=== PATIENT | female | born 1960 | race Caucasian/White ===

== ENCOUNTER 2016-04-02 23:18 | Emergency (ER) | payer OTHER ==
[~2016-04-02] VITALS: Ht 154.9 cm; Wt 39.5 kg
[~2016-04-02 23:18] MED LIST: ENDOCET 5-3251 EACH PO; HYDROCHLOROTH12.5 M3 PO; LISINOPRIL10 MG PO; NOHOMEMEDS; PERCOCET 5/31 TABLET PO
[2016-04-03] MEDS ORDERED: NORCO 5/3251 TABLET PO (00:08)
[2016-04-03 00:17] VITALS: BP 157/90
== END 2016-04-03 00:21 | disposition home or self-care (01) ==
LOC: EME 23:18
DX: S69.91XA Unspecified injury of right wrist, hand and finger(s), initial encounter (principal); W10.1XXA Fall (on)(from) sidewalk curb, initial encounter; Y92.480 Sidewalk as the place of occurrence of the external cause; F17.200 Nicotine dependence, unspecified, uncomplicated
CPT/HCPCS: 73110; 99281; 99284

== ENCOUNTER 2017-07-29 17:10 | Inpatient (IN) | payer OTHER ==
[~2017-07-29] VITALS: Ht 160 cm; Wt 40.1 kg
[~2017-07-29 17:10] MED LIST changes: +NORCO 5/3251 TABLET PO
[2017-07-29 17:59] LABS: ALBUMIN 3.7 g/dL (3.2-4.8); CHLORIDE 80 mEq/L (99-109); POTASSIUM 4.1 mEq/L (3.7-5.4); SODIUM 121 mEq/L (136-147)
[2017-07-29 18:00] LABS: COMMENTS - BLOOD GASES A+C+; DEVICE NC; O2 FLOW 6 L/MIN; SITE RR; TOTAL RESP RATE 26 resp/min
[2017-07-29 18:01] LABS: GLUCOSE 97 mg/dL (70-99); TOTAL PROTEIN 7.4 g/dL (6.4-8.3)
[2017-07-29 18:01] LABS: BASE EXCESS -0.4 mEq/L (-3 to +3); BICARBONATE 23.1 mEq/L (22-26); CARBOXY HGB 1.5 % (0-5); METHEMOGLOBIN 1.1 % (0-1.5); PCO2 34 mm Hg (35-45); PO2 57 mm Hg (80-100); pH 7.44 (7.35-7.45)
[2017-07-29 18:03] LABS: TOTAL BILIRUBIN 0.4 mg/dL (0.0-1.0)
[2017-07-29 18:04] LABS: SERUM ETHYL ALCOHOL < 10 mg/dL
[2017-07-29 18:05] LABS: CREATININE 2.7 mg/dL (0.6-1.3); GFR ESTIMATE (CALCULATED) 20 mL/min/
[2017-07-29 18:06] LABS: ALKALINE PHOSPHATASE 70 IU/L (3-129); AST (GOT) 107 IU/L (2-34)
[2017-07-29 18:07] LABS: UREA NITROGEN (BUN) 52 mg/dL (9-23)
[2017-07-29 18:08] LABS: SALICYLATE < 5.0 MG/DL (15-30)
[2017-07-29 18:09] LABS: ACETAMINOPHEN (TYLENOL) < 10 mcg/mL (10-30); ALT (GPT) 22 IU/L (3-49); LIPASE 37 U/L (1.0-51.0); TROP-I INTERPRETATION NEGATIVE; TROPONIN-I 0.03 ng/mL (0.0-0.30)
[2017-07-29 18:32] LABS: ABS NEUTROPHIL COUNT 4.6; ANISOCYTOSIS 1+; ATYPICAL LYMPHOCYTE 1.7 %; BAND NEUTROPHILS 36.2 % (0-8.0); EOSINOPHIL ABS CT 0; HEMATOCRIT 40.2 % (36.0-46.0); HEMOGLOBIN 14.6 G/DL (11.9-15.5); LYMPHOCYTES 2.6 % (15.0-45.0); MCH 32.9 PG (29.0-34.0); MCHC 36.3 G/DL (30.0-36.0); MCV 90.5 FL (83-99); METAMYELOCYTES 0.9 %; MONOCYTES 7.8 % (0-9.0); PLAT.SUFFICIENCY ADEQUATE; PLATELET COUNT 305 K/uL (156-360); POIKILOCYTOSIS 2+; RBC DIS.WIDTH-CV 13.9 % (11.8-14.6); RBC DIS.WIDTH-SD 46.5 % (39-53); RED BLOOD COUNT 4.44 M/uL (3.80-5.20); SEG.NEUTROPHILS 50.8 % (46.0-76.0); WHITE BLOOD COUNT 5.3 K/uL (4.1-10.2)
[2017-07-29] MEDS ORDERED: HYDROCHLOROTH12.5 M3 PO (18:53)
[2017-07-29] MEDS ORDERED: LISINOPRIL10 MG PO (18:53)
[2017-07-29] MEDS ORDERED: TYLENOL EXTRA500 MG PO (18:59)
[2017-07-29 20:44] LABS: APPEARANCE SL.HAZY ((CLEAR)); BILIRUBIN NEGATIVE; BLOOD MODERATE; COLOR YELLOW ((YELLOW)); GLUCOSE (STRIP) NEGATIVE; KETONES NEGATIVE; LEUKOCYTES NEGATIVE; NITRITE NEGATIVE; PROTEIN (STRIP) 100; SPECIFIC GRAVITY 1.014 (1.000-1.030); UROBILINOGEN 0.2 MG/DL (0.2-1.0)
[2017-07-29 20:53] LABS: AMPHETAMINE NEGATIVE (500 ng/mL); BARBITURATES NEGATIVE (200 ng/mL); BENZODIAZEPINES NEGATIVE (150 ng/mL); BUPRENORPHINE PRESUMPTIVE POSITIVE (10 ng/mL); COCAINE NEGATIVE (150 ng/mL); METHADONE NEGATIVE (200 ng/mL); METHAMPHETAMINE NEGATIVE (500 ng/mL); OPIATES (MORPHINE) NEGATIVE (100 ng/mL); OXYCODONE NEGATIVE (100 ng/mL); PHENCYCLIDINE NEGATIVE (25 ng/mL); PROPOXYPHENE NEGATIVE (300 ng/mL); THC CANNABINOIDS NEGATIVE (50 ng/mL); TRICYCLIC ANTIDEPRESSANTS NEGATIVE (300 ng/mL)
[2017-07-29 20:54] LABS: BACTERIA RARE /HPF; EPITHELIAL CELLS RARE /HPF; HYALINE CASTS 0-5 /LPF; MUCUS NONE SEEN /LPF; RED BLOOD CELLS 0-5 /HPF (0-5); UCUL ADDED? NO; WHITE BLOOD CELLS 0-5 /HPF (0-5)
[2017-07-29 21:10] LABS: MAGNESIUM 1.7 mg/dL (1.3-2.7)
[2017-07-29 21:15] LABS: PHOSPHORUS 5.2 mg/dL (2.5-4.9)
[2017-07-29 23:00] VITALS: BP 111/69
[2017-07-30 00:52] LABS: TROP-I INTERPRETATION NEGATIVE; TROPONIN-I 0.02 ng/mL (0.0-0.30)
[2017-07-30 04:40] VITALS: BP 142/83
[2017-07-30 06:12] LABS: TROP-I INTERPRETATION NEGATIVE; TROPONIN-I 0.03 ng/mL (0.0-0.30)
[2017-07-30 06:24] LABS: HEMATOCRIT 32.8 % (36.0-46.0); MCH 33.8 PG (29.0-34.0); MCHC 37.2 G/DL (30.0-36.0); MCV 90.9 FL (83-99); NRBC (%) 0.7 /100 WBC (0-0); RBC DIS.WIDTH-CV 14.1 % (11.8-14.6); RBC DIS.WIDTH-SD 47.1 % (39-53); RED BLOOD COUNT 3.61 M/uL (3.80-5.20); WHITE BLOOD COUNT 4.3 K/uL (4.1-10.2)
[2017-07-30 06:25] LABS: HEMOGLOBIN 12.2 G/DL (11.9-15.5)
[2017-07-30 07:16] LABS: CHLORIDE 88 MEQ/L (99-109); POTASSIUM 3.4 MEQ/L (3.7-5.4); SODIUM 122 MEQ/L (136-147); UREA NITROGEN (BUN) 35 mg/dL (9-23)
[2017-07-30 07:18] LABS: CREATININE 1.3 MG/DL (0.6-1.3); GFR ESTIMATE (CALCULATED) 45 mL/min/; GLUCOSE 166 mg/dL (70-99)
[2017-07-30 07:53] LABS: PLATELET COUNT 214 K/uL (156-360)
[2017-07-30 08:00] VITALS: BP 112/68
[2017-07-30 09:13] LABS: MAGNESIUM 2.5 mg/dl (1.3-2.7); PHOSPHORUS 3.5 mg/dL (2.5-4.9)
[2017-07-30 12:57] VITALS: BP 98/56
[2017-07-30 16:31] LABS: CHLORIDE 88 MEQ/L (99-109); CREATININE 0.9 MG/DL (0.6-1.3); GFR ESTIMATE (CALCULATED) > 59 mL/min/; GLUCOSE 122 mg/dL (70-99); POTASSIUM 3.2 MEQ/L (3.7-5.4); SODIUM 124 MEQ/L (136-147); UREA NITROGEN (BUN) 30 mg/dL (9-23)
[2017-07-30 17:08] LABS: ALBUMIN 2.7 G/DL (3.2-4.8)
[2017-07-30 17:14] LABS: URIC ACID 3.8 mg/dL (3.1-9.2)
[2017-07-30 17:21] VITALS: BP 116/69
[2017-07-30 20:05] VITALS: BP 103/57
[2017-07-30 20:45] LABS: ALBUMIN 2.8 G/DL (3.2-4.8); CHLORIDE 89 MEQ/L (99-109); CREATININE 0.9 MG/DL (0.6-1.3); GFR ESTIMATE (CALCULATED) > 59 mL/min/; GLUCOSE 168 mg/dL (70-99); PHOSPHORUS 2.7 mg/dL (2.5-4.9); POTASSIUM 2.9 MEQ/L (3.7-5.4); SODIUM 124 MEQ/L (136-147); UREA NITROGEN (BUN) 29 mg/dL (9-23)
[2017-07-30 22:24] LABS: MAGNESIUM 2.2 mg/dl (1.3-2.7)
[2017-07-30 22:47] VITALS: BP 102/64
[2017-07-31 07:00] VITALS: BP 90/56
[2017-07-31 08:05] LABS: HEMATOCRIT 30.7 % (36.0-46.0); HEMOGLOBIN 11.2 G/DL (11.9-15.5); MCH 33.7 PG (29.0-34.0); MCHC 36.5 G/DL (30.0-36.0); MCV 92.5 FL (83-99); RBC DIS.WIDTH-CV 14.2 % (11.8-14.6); RBC DIS.WIDTH-SD 48.2 % (39-53); RED BLOOD COUNT 3.32 M/uL (3.80-5.20); WHITE BLOOD COUNT 9.7 K/uL (4.1-10.2)
[2017-07-31 08:06] LABS: PLATELET COUNT 285 K/uL (156-360)
[2017-07-31 08:24] LABS: PTT 47.3 SEC (25-37)
[2017-07-31 08:32] LABS: TROP-I INTERPRETATION NEGATIVE; TROPONIN-I 0.06 ng/mL (0.0-0.30)
[2017-07-31 08:42] LABS: THYROTROPIN (TSH) 0.35 MIU/L (0.4-5.5)
[2017-07-31 08:54] LABS: FOLIC ACID (FOLATE) 6.6 NG/ML (5.0-22.0)
[2017-07-31 08:55] LABS: ALBUMIN 2.5 G/DL (3.2-4.8); CHLORIDE 93 MEQ/L (99-109); CREATININE 0.8 MG/DL (0.6-1.3); FERRITIN 924 NG/ML (10-291); GFR ESTIMATE (CALCULATED) > 59 mL/min/; PHOSPHORUS 2.7 mg/dL (2.5-4.9); SODIUM 126 MEQ/L (136-147); TRANSFERRIN (TIBC) 126.8 mg/dL (215-380); UREA NITROGEN (BUN) 25 mg/dL (9-23)
[2017-07-31 08:57] LABS: GLUCOSE 102 mg/dL (70-99); POTASSIUM 3.6 MEQ/L (3.7-5.4)
[2017-07-31 10:13] LABS: IRON < 10 MCG/DL (35-150); TRANSFERRIN SATUR. 8 % (20-55)
[2017-07-31 12:05] VITALS: BP 121/80
[2017-07-31 16:00] VITALS: BP 118/66
[2017-07-31 19:50] VITALS: BP 131/64
[2017-07-31 23:30] VITALS: BP 108/71
[2017-08-01] VITALS (23 sets, daily range): BP systolic 73–109; BP diastolic 54–87
[2017-08-01 05:17] LABS: CHLORIDE 98 mEq/L (99-109); POTASSIUM 3.5 mEq/L (3.7-5.4); SODIUM 130 mEq/L (136-147)
[2017-08-01 05:19] LABS: ALBUMIN 2.5 g/dL (3.2-4.8); GLUCOSE 113 mg/dL (70-99); POTASSIUM 3.9 mEq/L (3.7-5.4); SODIUM 131 mEq/L (136-147)
[2017-08-01 05:20] LABS: CHLORIDE 99 mEq/L (99-109); MAGNESIUM 1.6 mg/dL (1.3-2.7)
[2017-08-01 05:21] LABS: GLUCOSE 110 mg/dL (70-99)
[2017-08-01 05:23] LABS: CREATININE 0.6 mg/dL (0.6-1.3); GFR ESTIMATE (CALCULATED) > 59 mL/min/; UREA NITROGEN (BUN) 19 mg/dL (9-23)
[2017-08-01 05:25] LABS: CREATININE 0.6 mg/dL (0.6-1.3); GFR ESTIMATE (CALCULATED) > 59 mL/min/; PHOSPHORUS 2.7 mg/dL (2.5-4.9)
[2017-08-01 05:26] LABS: UREA NITROGEN (BUN) 19 mg/dL (9-23)
[2017-08-01 06:23] LABS: O2 SATURATION (CALCULATED) 97.9 % (95-99); PCO2 51 mm Hg (35-45); PO2 92 mm Hg (80-100); pH 7.31 (7.35-7.45)
[2017-08-01 06:24] LABS: BASE EXCESS -1.1 mEq/L (-3 to +3); BICARBONATE 25.7 mEq/L (22-26); COMMENTS - BLOOD GASES A+C+; DEVICE HFNC; O2 FLOW 10 L/MIN; SITE RR; TOTAL RESP RATE 25 resp/min
[2017-08-01 08:27] LABS: COMMENTS - BLOOD GASES A+C+; DEVICE 840; FI02 100 %; MODE A/C; SITE RR
[2017-08-01 08:28] LABS: BASE EXCESS -1.8 mEq/L (-3 to +3); BICARBONATE 23.7 mEq/L (22-26); MECHANICAL RATE 16 resp/min; METHEMOGLOBIN 1.1 % (0-1.5); PCO2 42 mm Hg (35-45); PO2 338 mm Hg (80-100); TOTAL RESP RATE 17 resp/min; pH 7.36 (7.35-7.45)
[2017-08-01 08:29] LABS: PEEP 5 CM/H20; TIDAL VOLUME 400 ML
[2017-08-01 09:36] LABS: HEMATOCRIT 31.3 % (36.0-46.0); MCH 33.3 PG (29.0-34.0); MCHC 35.1 G/DL (30.0-36.0); MCV 94.8 FL (83-99); PLATELET COUNT 320 K/uL (156-360); RBC DIS.WIDTH-CV 14.8 % (11.8-14.6); RBC DIS.WIDTH-SD 51.8 % (39-53); WHITE BLOOD COUNT 13.7 K/uL (4.1-10.2)
[2017-08-01 10:05] LABS: BASOPHIL (%) 0.1 % (0-1); EOSINOPHIL (%) 0 % (0-5); IMMATURE GRANULOCYTE (%) 0.7 % (0.0-0.7); LYMPHOCYTE (%) 5.6 % (15-42); LYMPHOCYTE COUNT 0.8 K/uL (1.0-2.8); MONOCYTE (%) 6.5 % (3-12); MONOCYTE COUNT 0.9 K/uL (0-0.8); NEUTROPHIL (%) 87.1 % (45-76); PLAT.SUFFICIENCY ADEQUATE
[2017-08-01 10:30] LABS: CHLORIDE 98 MEQ/L (99-109); CREATININE 0.5 MG/DL (0.6-1.3); GFR ESTIMATE (CALCULATED) > 59 mL/min/; GLUCOSE 104 mg/dL (70-99); MAGNESIUM 1.7 mg/dl (1.3-2.7); PHOSPHORUS 3.2 mg/dL (2.5-4.9); POTASSIUM 4.2 MEQ/L (3.7-5.4); SODIUM 133 MEQ/L (136-147); TRIGLYCERIDES 159 MG/DL (Normal: <150); UREA NITROGEN (BUN) 20 mg/dL (9-23)
[2017-08-01 10:33] LABS: HIGH-SENS C-REACTIVE PROTEIN > 8.00 MG/DL (0.02-0.20)
[2017-08-02] VITALS (23 sets, daily range): BP systolic 89–113; BP diastolic 62–78
[2017-08-02 06:02] LABS: ALBUMIN 1.7 G/DL (3.2-4.8); CREATINE KINASE 31 IU/L (1-294); CREATININE 0.6 MG/DL (0.6-1.3); GFR ESTIMATE (CALCULATED) > 59 mL/min/; MAGNESIUM 1.8 mg/dl (1.3-2.7); PHOSPHORUS 3.3 mg/dL (2.5-4.9); SODIUM 137 MEQ/L (136-147); UREA NITROGEN (BUN) 15 mg/dL (9-23)
[2017-08-02 06:25] LABS: CHLORIDE 109 MEQ/L (99-109); GLUCOSE 316 mg/dL (70-99); POTASSIUM 3.2 MEQ/L (3.7-5.4); VANCOMYCIN, TROUGH 4.2 MCG/ML (10-20)
[2017-08-03] VITALS (18 sets, daily range): BP systolic 98–109; BP diastolic 63–77
[2017-08-03 05:03] LABS: HEMOGLOBIN 9.9 G/DL (11.9-15.5); MCH 33.8 PG (29.0-34.0); MCHC 35.4 G/DL (30.0-36.0); MCV 95.6 FL (83-99); PLATELET COUNT 308 K/uL (156-360); RBC DIS.WIDTH-CV 15.7 % (11.8-14.6); RBC DIS.WIDTH-SD 55.4 % (39-53); RED BLOOD COUNT 2.93 M/uL (3.80-5.20); WHITE BLOOD COUNT 15.8 K/uL (4.1-10.2)
[2017-08-03 05:26] LABS: CHLORIDE 117 mEq/L (99-109); POTASSIUM 4.4 mEq/L (3.7-5.4); SODIUM 144 mEq/L (136-147)
[2017-08-03 05:27] LABS: GLUCOSE 254 mg/dL (70-99)
[2017-08-03 05:31] LABS: CREATININE 0.7 mg/dL (0.6-1.3); GFR ESTIMATE (CALCULATED) > 59 mL/min/
[2017-08-03 05:32] LABS: UREA NITROGEN (BUN) 16 mg/dL (9-23)
[2017-08-04] VITALS (21 sets, daily range): BP systolic 96–119; BP diastolic 62–79
[2017-08-04 05:17] LABS: C DIFF TOXIN NEGATIVE (NEGATIVE)
[2017-08-04 06:07] LABS: CREATINE KINASE 115 IU/L (1-294)
[2017-08-04 08:19] LABS: BASOPHIL (%) 0.1 % (0-1); EOSINOPHIL (%) 0 % (0-5); HEMATOCRIT 26.1 % (36.0-46.0); HEMOGLOBIN 8.7 G/DL (11.9-15.5); IMMATURE GRANULOCYTE (%) 1.3 % (0.0-0.7); LYMPHOCYTE (%) 2.9 % (15-42); LYMPHOCYTE COUNT 0.5 K/uL (1.0-2.8); MCH 33.6 PG (29.0-34.0); MCHC 33.3 G/DL (30.0-36.0); MONOCYTE (%) 6.6 % (3-12); MONOCYTE COUNT 1.1 K/uL (0-0.8); NEUTROPHIL (%) 89.1 % (45-76); NEUTROPHIL COUNT 14.5 K/uL (1.8-6.4); PLATELET COUNT 318 K/uL (156-360); RBC DIS.WIDTH-CV 16.5 % (11.8-14.6); RBC DIS.WIDTH-SD 61.2 % (39-53); RED BLOOD COUNT 2.59 M/uL (3.80-5.20); WHITE BLOOD COUNT 16.2 K/uL (4.1-10.2)
[2017-08-04 08:20] LABS: MCV 100.8 FL (83-99)
[2017-08-04 08:26] LABS: CHLORIDE 118 MEQ/L (99-109); CREATININE 0.7 MG/DL (0.6-1.3); GFR ESTIMATE (CALCULATED) > 59 mL/min/; GLUCOSE 187 mg/dL (70-99); SODIUM 146 MEQ/L (136-147); UREA NITROGEN (BUN) 18 mg/dL (9-23)
[2017-08-04 08:30] LABS: POTASSIUM 3.4 MEQ/L (3.7-5.4)
[2017-08-05] VITALS (24 sets, daily range): BP systolic 104–138; BP diastolic 67–94
[2017-08-05 05:42] LABS: HEMOGLOBIN 8.9 G/DL (11.9-15.5); MCH 33.8 PG (29.0-34.0); MCHC 34.2 G/DL (30.0-36.0); MCV 98.9 FL (83-99); PLATELET COUNT 363 K/uL (156-360); RBC DIS.WIDTH-CV 16.9 % (11.8-14.6); RBC DIS.WIDTH-SD 61.1 % (39-53); RED BLOOD COUNT 2.63 M/uL (3.80-5.20); WHITE BLOOD COUNT 21.4 K/uL (4.1-10.2)
[2017-08-05 06:31] LABS: CHLORIDE 115 MEQ/L (99-109); CREATINE KINASE 44 IU/L (1-294); CREATININE 0.6 MG/DL (0.6-1.3); GFR ESTIMATE (CALCULATED) > 59 mL/min/; GLUCOSE 191 mg/dL (70-99); MAGNESIUM 1.7 mg/dl (1.3-2.7); PHOSPHORUS 3.3 mg/dL (2.5-4.9); SODIUM 147 MEQ/L (136-147); UREA NITROGEN (BUN) 21 mg/dL (9-23)
[2017-08-05 06:50] LABS: ANISOCYTOSIS 1+; BURR CELLS 1+; EOSINOPHIL ABS CT 0; GIANT PLATELETS 2+; MACROCYTES 1+; METAMYELOCYTES 0.9 %; MONOCYTES 0.9 % (0-9.0); PLATELET CLUMPS PRESENT - PLATELET COUNT APPEARS ADQ.; POIKILOCYTOSIS 1+; TOXIC GRANULATION 3+
[2017-08-05 06:51] LABS: SEG.NEUTROPHILS 98.2 % (46.0-76.0)
[2017-08-06] VITALS (23 sets, daily range): BP systolic 104–136; BP diastolic 66–94
[2017-08-06 06:17] LABS: BASOPHIL (%) 0.1 % (0-1); EOSINOPHIL (%) 0 % (0-5); HEMATOCRIT 25.9 % (36.0-46.0); HEMOGLOBIN 8.7 G/DL (11.9-15.5); IMMATURE GRANULOCYTE (%) 1.4 % (0.0-0.7); LYMPHOCYTE (%) 1.4 % (15-42); LYMPHOCYTE COUNT 0.3 K/uL (1.0-2.8); MCH 33.1 PG (29.0-34.0); MCHC 33.6 G/DL (30.0-36.0); MCV 98.5 FL (83-99); MONOCYTE (%) 1.8 % (3-12); MONOCYTE COUNT 0.4 K/uL (0-0.8); NEUTROPHIL (%) 95.3 % (45-76); PLATELET COUNT 398 K/uL (156-360); RBC DIS.WIDTH-CV 16.6 % (11.8-14.6); RBC DIS.WIDTH-SD 58.8 % (39-53); RED BLOOD COUNT 2.63 M/uL (3.80-5.20); WHITE BLOOD COUNT 24.2 K/uL (4.1-10.2)
[2017-08-06 06:43] LABS: CHLORIDE 108 MEQ/L (99-109); CREATINE KINASE 75 IU/L (1-294); CREATININE 0.6 MG/DL (0.6-1.3); GFR ESTIMATE (CALCULATED) > 59 mL/min/; GLUCOSE 203 mg/dL (70-99); MAGNESIUM 1.7 mg/dl (1.3-2.7); PHOSPHORUS 3.6 mg/dL (2.5-4.9); POTASSIUM 4.4 MEQ/L (3.7-5.4); UREA NITROGEN (BUN) 21 mg/dL (9-23)
[2017-08-06 06:44] LABS: SODIUM 138 MEQ/L (136-147)
[2017-08-07] VITALS (20 sets, daily range): BP systolic 106–144; BP diastolic 67–91
[2017-08-07 05:51] LABS: BASOPHIL (%) 0.1 % (0-1); EOSINOPHIL (%) 0 % (0-5); HEMATOCRIT 25.5 % (36.0-46.0); HEMOGLOBIN 8.7 G/DL (11.9-15.5); IMMATURE GRANULOCYTE (%) 1.4 % (0.0-0.7); LYMPHOCYTE (%) 1.8 % (15-42); LYMPHOCYTE COUNT 0.4 K/uL (1.0-2.8); MCH 33.5 PG (29.0-34.0); MCHC 34.1 G/DL (30.0-36.0); MCV 98.1 FL (83-99); MONOCYTE (%) 2.8 % (3-12); MONOCYTE COUNT 0.6 K/uL (0-0.8); NEUTROPHIL (%) 93.9 % (45-76); NEUTROPHIL COUNT 20.9 K/uL (1.8-6.4); PLATELET COUNT 411 K/uL (156-360); RBC DIS.WIDTH-CV 16.3 % (11.8-14.6); WHITE BLOOD COUNT 22.3 K/uL (4.1-10.2)
[2017-08-07 06:09] LABS: CHLORIDE 105 MEQ/L (99-109); CREATININE 0.5 MG/DL (0.6-1.3); GFR ESTIMATE (CALCULATED) > 59 mL/min/; GLUCOSE 145 mg/dL (70-99); MAGNESIUM 1.6 mg/dl (1.3-2.7); PHOSPHORUS 4.2 mg/dL (2.5-4.9); POTASSIUM 4.2 MEQ/L (3.7-5.4); SODIUM 137 MEQ/L (136-147); UREA NITROGEN (BUN) 18 mg/dL (9-23)
[2017-08-08] VITALS (24 sets, daily range): BP systolic 92–159; BP diastolic 58–94
[2017-08-08 05:15] LABS: BASOPHIL (%) 0.1 % (0-1); EOSINOPHIL (%) 0.1 % (0-5); HEMATOCRIT 27.1 % (36.0-46.0); HEMOGLOBIN 9.3 G/DL (11.9-15.5); IMMATURE GRANULOCYTE (%) 1.6 % (0.0-0.7); LYMPHOCYTE (%) 2.1 % (15-42); LYMPHOCYTE COUNT 0.4 K/uL (1.0-2.8); MCH 32.9 PG (29.0-34.0); MCHC 34.3 G/DL (30.0-36.0); MCV 95.8 FL (83-99); MONOCYTE (%) 3.9 % (3-12); MONOCYTE COUNT 0.7 K/uL (0-0.8); NEUTROPHIL (%) 92.2 % (45-76); NEUTROPHIL COUNT 16.8 K/uL (1.8-6.4); PLATELET COUNT 401 K/uL (156-360); RBC DIS.WIDTH-CV 15.7 % (11.8-14.6); RBC DIS.WIDTH-SD 55.1 % (39-53); RED BLOOD COUNT 2.83 M/uL (3.80-5.20); WHITE BLOOD COUNT 18.3 K/uL (4.1-10.2)
[2017-08-08 05:52] LABS: CHLORIDE 101 MEQ/L (99-109); CREATININE 0.5 MG/DL (0.6-1.3); GFR ESTIMATE (CALCULATED) > 59 mL/min/; GLUCOSE 150 mg/dL (70-99); MAGNESIUM 1.6 mg/dl (1.3-2.7); PHOSPHORUS 3.9 mg/dL (2.5-4.9); POTASSIUM 3.9 MEQ/L (3.7-5.4); SODIUM 138 MEQ/L (136-147); UREA NITROGEN (BUN) 16 mg/dL (9-23)
[2017-08-09] VITALS (22 sets, daily range): BP systolic 79–167; BP diastolic 48–119
[2017-08-09 05:30] LABS: BASOPHIL (%) 0.1 % (0-1); EOSINOPHIL (%) 0 % (0-5); HEMATOCRIT 24.5 % (36.0-46.0); HEMOGLOBIN 8.4 G/DL (11.9-15.5); IMMATURE GRANULOCYTE (%) 1.3 % (0.0-0.7); LYMPHOCYTE (%) 3.6 % (15-42); LYMPHOCYTE COUNT 0.4 K/uL (1.0-2.8); MCH 32.7 PG (29.0-34.0); MCHC 34.3 G/DL (30.0-36.0); MCV 95.3 FL (83-99); MONOCYTE (%) 4.3 % (3-12); MONOCYTE COUNT 0.5 K/uL (0-0.8); NEUTROPHIL (%) 90.7 % (45-76); NEUTROPHIL COUNT 10.5 K/uL (1.8-6.4); PLATELET COUNT 378 K/uL (156-360); RBC DIS.WIDTH-CV 15.3 % (11.8-14.6); RBC DIS.WIDTH-SD 52.2 % (39-53); RED BLOOD COUNT 2.57 M/uL (3.80-5.20); WHITE BLOOD COUNT 11.5 K/uL (4.1-10.2)
[2017-08-09 06:39] LABS: CHLORIDE 98 MEQ/L (99-109); CREATININE 0.4 MG/DL (0.6-1.3); GFR ESTIMATE (CALCULATED) > 59 mL/min/; MAGNESIUM 1.7 mg/dl (1.3-2.7); PHOSPHORUS 3.6 mg/dL (2.5-4.9); SODIUM 141 MEQ/L (136-147); UREA NITROGEN (BUN) 14 mg/dL (9-23)
[2017-08-09 06:44] LABS: GLUCOSE 90 mg/dL (70-99); POTASSIUM 2.9 MEQ/L (3.7-5.4)
[2017-08-10] VITALS (20 sets, daily range): BP systolic 120–165; BP diastolic 65–106
[2017-08-10 03:33] LABS: COMMENTS - BLOOD GASES A+C+; CONTINUOUS POS AIRWAY PRESSURE 10 cm H2O; DEVICE MASKVENT; FI02 70 %; MODE NSPONT; PCO2 52 mm Hg (35-45); PEEP 5 CM/H20; SITE LR; TOTAL RESP RATE 33 resp/min; pH 7.48 (7.35-7.45)
[2017-08-10 03:34] LABS: BASE EXCESS 13.5 mEq/L (-3 to +3); BICARBONATE 38.7 mEq/L (22-26); METHEMOGLOBIN 1.1 % (0-1.5); PO2 142 mm Hg (80-100)
[2017-08-10 08:39] LABS: BASOPHIL (%) 0.1 % (0-1); EOSINOPHIL (%) 0 % (0-5); HEMATOCRIT 26.9 % (36.0-46.0); HEMOGLOBIN 9.2 G/DL (11.9-15.5); IMMATURE GRANULOCYTE (%) 0.8 % (0.0-0.7); LYMPHOCYTE (%) 2.8 % (15-42); LYMPHOCYTE COUNT 0.4 K/uL (1.0-2.8); MCH 33.3 PG (29.0-34.0); MCHC 34.2 G/DL (30.0-36.0); MCV 97.5 FL (83-99); MONOCYTE (%) 4.3 % (3-12); MONOCYTE COUNT 0.7 K/uL (0-0.8); NEUTROPHIL COUNT 14.2 K/uL (1.8-6.4); PLATELET COUNT 448 K/uL (156-360); RBC DIS.WIDTH-CV 15.3 % (11.8-14.6); RBC DIS.WIDTH-SD 53.9 % (39-53); RED BLOOD COUNT 2.76 M/uL (3.80-5.20); WHITE BLOOD COUNT 15.5 K/uL (4.1-10.2)
[2017-08-10 09:04] LABS: ALBUMIN 3.1 G/DL (3.2-4.8); ALKALINE PHOSPHATASE 144 IU/L (3-129); ALT (GPT) 19 IU/L (3-49); AST (GOT) 50 IU/L (2-34); CHLORIDE 97 MEQ/L (99-109); CREATININE 0.5 MG/DL (0.6-1.3); GFR ESTIMATE (CALCULATED) > 59 mL/min/; GLUCOSE 71 mg/dL (70-99); HIGH-SENS C-REACTIVE PROTEIN 4.42 MG/DL (0.02-0.20); MAGNESIUM 1.7 mg/dl (1.3-2.7); PHOSPHORUS 2.8 mg/dL (2.5-4.9); SODIUM 142 MEQ/L (136-147); TOTAL BILIRUBIN 0.7 MG/DL (0.0-1.0); TOTAL PROTEIN 5.3 G/DL (6.4-8.3); UREA NITROGEN (BUN) 19 mg/dL (9-23)
[2017-08-10 20:10] LABS: CHLORIDE 100 MEQ/L (99-109); CREATININE 0.5 MG/DL (0.6-1.3); GFR ESTIMATE (CALCULATED) > 59 mL/min/; GLUCOSE 74 mg/dL (70-99); PHOSPHORUS 2.8 mg/dL (2.5-4.9); SODIUM 140 MEQ/L (136-147); UREA NITROGEN (BUN) 21 mg/dL (9-23)
[2017-08-10 20:11] LABS: MAGNESIUM 2.4 mg/dl (1.3-2.7); POTASSIUM 4.5 MEQ/L (3.7-5.4)
[2017-08-11] VITALS (18 sets, daily range): BP systolic 124–154; BP diastolic 74–92
[2017-08-11 04:45] LABS: HEMOGLOBIN 8.5 G/DL (11.9-15.5); PLATELET COUNT 406 K/uL (156-360); RBC DIS.WIDTH-CV 15.6 % (11.8-14.6); RBC DIS.WIDTH-SD 56.3 % (39-53); WHITE BLOOD COUNT 11.7 K/uL (4.1-10.2)
[2017-08-11 05:02] LABS: CHLORIDE 102 mEq/L (99-109); POTASSIUM 4.3 mEq/L (3.7-5.4); SODIUM 142 mEq/L (136-147)
[2017-08-11 05:04] LABS: GLUCOSE 88 mg/dL (70-99)
[2017-08-11 05:08] LABS: CREATININE 0.6 mg/dL (0.6-1.3); GFR ESTIMATE (CALCULATED) > 59 mL/min/; PHOSPHORUS 3.1 mg/dL (2.5-4.9)
[2017-08-11 05:09] LABS: UREA NITROGEN (BUN) 22 mg/dL (9-23)
[2017-08-11 18:29] LABS: CHLORIDE 102 MEQ/L (99-109); CREATININE 0.5 MG/DL (0.6-1.3); GFR ESTIMATE (CALCULATED) > 59 mL/min/; PHOSPHORUS 2.9 mg/dL (2.5-4.9); POTASSIUM 3.9 MEQ/L (3.7-5.4); SODIUM 141 MEQ/L (136-147); UREA NITROGEN (BUN) 21 mg/dL (9-23)
[2017-08-11 18:30] LABS: GLUCOSE 111 mg/dL (70-99); MAGNESIUM 1.8 mg/dl (1.3-2.7)
[2017-08-12] VITALS (23 sets, daily range): BP systolic 119–155; BP diastolic 59–112
[2017-08-12 05:32] LABS: HEMATOCRIT 22.9 % (36.0-46.0); HEMOGLOBIN 7.5 G/DL (11.9-15.5); MCHC 32.8 G/DL (30.0-36.0); MCV 100.9 FL (83-99); PLATELET COUNT 359 K/uL (156-360); RBC DIS.WIDTH-CV 15.3 % (11.8-14.6); RBC DIS.WIDTH-SD 55.1 % (39-53); RED BLOOD COUNT 2.27 M/uL (3.80-5.20); WHITE BLOOD COUNT 8.8 K/uL (4.1-10.2)
[2017-08-12 05:56] LABS: CHLORIDE 104 MEQ/L (99-109); CREATININE 0.4 MG/DL (0.6-1.3); GFR ESTIMATE (CALCULATED) > 59 mL/min/; GLUCOSE 140 mg/dL (70-99); MAGNESIUM 1.8 mg/dl (1.3-2.7); PHOSPHORUS 3.9 mg/dL (2.5-4.9); POTASSIUM 3.9 MEQ/L (3.7-5.4); SODIUM 142 MEQ/L (136-147); UREA NITROGEN (BUN) 20 mg/dL (9-23)
[2017-08-12 18:54] LABS: CHLORIDE 102 MEQ/L (99-109); CREATININE 0.4 MG/DL (0.6-1.3); GFR ESTIMATE (CALCULATED) > 59 mL/min/; GLUCOSE 118 mg/dL (70-99); MAGNESIUM 1.7 mg/dl (1.3-2.7); POTASSIUM 4.2 MEQ/L (3.7-5.4); SODIUM 141 MEQ/L (136-147); UREA NITROGEN (BUN) 18 mg/dL (9-23)
[2017-08-13] VITALS (25 sets, daily range): BP systolic 112–169; BP diastolic 59–101
[2017-08-13 05:01] LABS: HEMATOCRIT 22.3 % (36.0-46.0); HEMOGLOBIN 7.4 G/DL (11.9-15.5); MCH 33.9 PG (29.0-34.0); MCHC 33.2 G/DL (30.0-36.0); MCV 102.3 FL (83-99); PLATELET COUNT 351 K/uL (156-360); RBC DIS.WIDTH-CV 15.1 % (11.8-14.6); RBC DIS.WIDTH-SD 56.3 % (39-53); RED BLOOD COUNT 2.18 M/uL (3.80-5.20); WHITE BLOOD COUNT 8.1 K/uL (4.1-10.2)
[2017-08-13 05:55] LABS: CHLORIDE 102 MEQ/L (99-109); CREATININE 0.4 MG/DL (0.6-1.3); GFR ESTIMATE (CALCULATED) > 59 mL/min/; GLUCOSE 109 mg/dL (70-99); MAGNESIUM 1.9 mg/dl (1.3-2.7); PHOSPHORUS 3.7 mg/dL (2.5-4.9); POTASSIUM 4.3 MEQ/L (3.7-5.4); SODIUM 141 MEQ/L (136-147); UREA NITROGEN (BUN) 20 mg/dL (9-23)
[2017-08-14] VITALS (15 sets, daily range): BP systolic 127–169; BP diastolic 75–106
[2017-08-14 05:17] LABS: HEMATOCRIT 25.7 % (36.0-46.0); HEMOGLOBIN 8.6 G/DL (11.9-15.5); MCH 33.5 PG (29.0-34.0); MCHC 33.5 G/DL (30.0-36.0); PLATELET COUNT 435 K/uL (156-360); RBC DIS.WIDTH-CV 15.1 % (11.8-14.6); RBC DIS.WIDTH-SD 54.9 % (39-53); RED BLOOD COUNT 2.57 M/uL (3.80-5.20); WHITE BLOOD COUNT 14.6 K/uL (4.1-10.2)
[2017-08-14 05:40] LABS: CHLORIDE 99 MEQ/L (99-109); CREATININE 0.8 MG/DL (0.6-1.3); GFR ESTIMATE (CALCULATED) > 59 mL/min/; GLUCOSE 154 mg/dL (70-99); MAGNESIUM 1.7 mg/dl (1.3-2.7); POTASSIUM 3.3 MEQ/L (3.7-5.4); SODIUM 139 MEQ/L (136-147); UREA NITROGEN (BUN) 21 mg/dL (9-23)
[2017-08-15] VITALS (23 sets, daily range): BP systolic 113–159; BP diastolic 69–104
[2017-08-15 05:33] LABS: HEMATOCRIT 23.6 % (36.0-46.0); HEMOGLOBIN 7.9 G/DL (11.9-15.5); MCH 33.6 PG (29.0-34.0); MCHC 33.5 G/DL (30.0-36.0); MCV 100.4 FL (83-99); PLATELET COUNT 393 K/uL (156-360); RBC DIS.WIDTH-CV 15.3 % (11.8-14.6); RBC DIS.WIDTH-SD 56.6 % (39-53); RED BLOOD COUNT 2.35 M/uL (3.80-5.20); WHITE BLOOD COUNT 11.8 K/uL (4.1-10.2)
[2017-08-15 05:51] LABS: CHLORIDE 102 MEQ/L (99-109); CREATININE 0.7 MG/DL (0.6-1.3); GFR ESTIMATE (CALCULATED) > 59 mL/min/; GLUCOSE 148 mg/dL (70-99); MAGNESIUM 1.7 mg/dl (1.3-2.7); SODIUM 139 MEQ/L (136-147); UREA NITROGEN (BUN) 18 mg/dL (9-23)
[2017-08-15 05:54] LABS: PHOSPHORUS 4.1 mg/dL (2.5-4.9); POTASSIUM 4.4 MEQ/L (3.7-5.4)
[2017-08-16] VITALS (24 sets, daily range): BP systolic 109–158; BP diastolic 68–103
[2017-08-16 04:53] LABS: HEMATOCRIT 21.5 % (36.0-46.0); MCH 33.3 PG (29.0-34.0); MCHC 32.6 G/DL (30.0-36.0); MCV 102.4 FL (83-99); PLATELET COUNT 366 K/uL (156-360); RBC DIS.WIDTH-CV 15.3 % (11.8-14.6); RBC DIS.WIDTH-SD 57.1 % (39-53); WHITE BLOOD COUNT 11.2 K/uL (4.1-10.2)
[2017-08-16 05:24] LABS: CHLORIDE 100 MEQ/L (99-109); CREATININE 0.5 MG/DL (0.6-1.3); GFR ESTIMATE (CALCULATED) > 59 mL/min/; GLUCOSE 158 mg/dL (70-99); MAGNESIUM 1.5 mg/dl (1.3-2.7); SODIUM 134 MEQ/L (136-147); UREA NITROGEN (BUN) 17 mg/dL (9-23)
[2017-08-17] VITALS (24 sets, daily range): BP systolic 100–165; BP diastolic 56–104
[2017-08-17 05:33] LABS: HEMATOCRIT 21.8 % (36.0-46.0); HEMOGLOBIN 7.2 G/DL (11.9-15.5); MCH 33.6 PG (29.0-34.0); MCV 101.9 FL (83-99); PLATELET COUNT 380 K/uL (156-360); RBC DIS.WIDTH-CV 15.3 % (11.8-14.6); RBC DIS.WIDTH-SD 56.9 % (39-53); RED BLOOD COUNT 2.14 M/uL (3.80-5.20); WHITE BLOOD COUNT 11.6 K/uL (4.1-10.2)
[2017-08-17 05:51] LABS: CHLORIDE 98 MEQ/L (99-109); CREATININE 0.5 MG/DL (0.6-1.3); GFR ESTIMATE (CALCULATED) > 59 mL/min/; GLUCOSE 123 mg/dL (70-99); MAGNESIUM 1.3 mg/dl (1.3-2.7); PHOSPHORUS 3.4 mg/dL (2.5-4.9); POTASSIUM 3.9 MEQ/L (3.7-5.4); SODIUM 136 MEQ/L (136-147); UREA NITROGEN (BUN) 12 mg/dL (9-23)
[2017-08-18] VITALS (18 sets, daily range): BP systolic 105–155; BP diastolic 62–93
[2017-08-18 05:31] LABS: HEMATOCRIT 22.2 % (36.0-46.0); HEMOGLOBIN 7.4 G/DL (11.9-15.5); MCH 33.6 PG (29.0-34.0); MCHC 33.3 G/DL (30.0-36.0); MCV 100.9 FL (83-99); PLATELET COUNT 374 K/uL (156-360); RBC DIS.WIDTH-CV 15.3 % (11.8-14.6); WHITE BLOOD COUNT 8.5 K/uL (4.1-10.2)
[2017-08-18 05:59] LABS: CHLORIDE 97 MEQ/L (99-109); CREATININE 0.4 MG/DL (0.6-1.3); GFR ESTIMATE (CALCULATED) > 59 mL/min/; GLUCOSE 151 mg/dL (70-99); PHOSPHORUS 3.4 mg/dL (2.5-4.9); POTASSIUM 3.7 MEQ/L (3.7-5.4); SODIUM 134 MEQ/L (136-147); UREA NITROGEN (BUN) 8 mg/dL (9-23)
[2017-08-18 06:07] LABS: MAGNESIUM 1.9 mg/dl (1.3-2.7)
[2017-08-19] VITALS (19 sets, daily range): BP systolic 117–148; BP diastolic 63–87
[2017-08-19 05:37] LABS: HEMATOCRIT 21.7 % (36.0-46.0); HEMOGLOBIN 7.3 G/DL (11.9-15.5); MCH 33.5 PG (29.0-34.0); MCHC 33.6 G/DL (30.0-36.0); MCV 99.5 FL (83-99); RBC DIS.WIDTH-CV 15.1 % (11.8-14.6); RBC DIS.WIDTH-SD 54.7 % (39-53); RED BLOOD COUNT 2.18 M/uL (3.80-5.20); WHITE BLOOD COUNT 8.4 K/uL (4.1-10.2)
[2017-08-19 06:06] LABS: CHLORIDE 96 MEQ/L (99-109); CREATININE 0.4 MG/DL (0.6-1.3); GFR ESTIMATE (CALCULATED) > 59 mL/min/; GLUCOSE 119 mg/dL (70-99); PHOSPHORUS 3.9 mg/dL (2.5-4.9); POTASSIUM 3.8 MEQ/L (3.7-5.4); SODIUM 137 MEQ/L (136-147); UREA NITROGEN (BUN) 12 mg/dL (9-23)
[2017-08-19 06:16] LABS: MAGNESIUM 1.5 mg/dl (1.3-2.7)
[2017-08-19 06:48] LABS: PLAT.SUFFICIENCY INCREASED; PLATELET COUNT 376 K/uL (156-360)
[2017-08-19 17:29] LABS: TOTAL PROTEIN 5.3 G/DL (6.4-8.3)
[2017-08-20] VITALS (10 sets, daily range): BP systolic 111–130; BP diastolic 62–90
[2017-08-20 05:29] LABS: HEMOGLOBIN 7.6 G/DL (11.9-15.5); PLATELET COUNT 412 K/uL (156-360); RBC DIS.WIDTH-CV 15.9 % (11.8-14.6); RBC DIS.WIDTH-SD 58.3 % (39-53); WHITE BLOOD COUNT 8.3 K/uL (4.1-10.2)
[2017-08-20 06:04] LABS: CHLORIDE 98 MEQ/L (99-109); CREATININE 0.5 MG/DL (0.6-1.3); GFR ESTIMATE (CALCULATED) > 59 mL/min/; GLUCOSE 115 mg/dL (70-99); MAGNESIUM 1.6 mg/dl (1.3-2.7); PHOSPHORUS 4.3 mg/dL (2.5-4.9); POTASSIUM 4.4 MEQ/L (3.7-5.4); SODIUM 140 MEQ/L (136-147); UREA NITROGEN (BUN) 13 mg/dL (9-23)
[2017-08-21] VITALS (12 sets, daily range): BP systolic 112–137; BP diastolic 65–82
[2017-08-21 11:44] LABS: BASOPHIL (%) 0 % (0-1); EOSINOPHIL (%) 0.8 % (0-5); EOSINOPHIL COUNT 0.1 K/uL (0-0.3); HEMATOCRIT 26.3 % (36.0-46.0); HEMOGLOBIN 8.9 G/DL (11.9-15.5); IMMATURE GRANULOCYTE (%) 0.5 % (0.0-0.7); LYMPHOCYTE (%) 2.7 % (15-42); LYMPHOCYTE COUNT 0.2 K/uL (1.0-2.8); MCH 33.8 PG (29.0-34.0); MCHC 33.8 G/DL (30.0-36.0); MONOCYTE (%) 5.2 % (3-12); MONOCYTE COUNT 0.4 K/uL (0-0.8); NEUTROPHIL (%) 90.8 % (45-76); NEUTROPHIL COUNT 7.2 K/uL (1.8-6.4); PLATELET COUNT 463 K/uL (156-360); RBC DIS.WIDTH-CV 15.9 % (11.8-14.6); RBC DIS.WIDTH-SD 58.5 % (39-53); RED BLOOD COUNT 2.63 M/uL (3.80-5.20); WHITE BLOOD COUNT 7.9 K/uL (4.1-10.2)
[2017-08-21 12:25] LABS: CHLORIDE 95 MEQ/L (99-109); CREATININE 0.5 MG/DL (0.6-1.3); GFR ESTIMATE (CALCULATED) > 59 mL/min/; MAGNESIUM 1.5 mg/dl (1.3-2.7); PHOSPHORUS 3.9 mg/dL (2.5-4.9); POTASSIUM 4.5 MEQ/L (3.7-5.4); SODIUM 135 MEQ/L (136-147); UREA NITROGEN (BUN) 15 mg/dL (9-23)
[2017-08-21 12:26] LABS: GLUCOSE 186 mg/dL (70-99)
[2017-08-22 03:21] VITALS: BP 122/63
[2017-08-22 08:09] VITALS: BP 119/67
[2017-08-22 09:10] LABS: BASOPHIL (%) 0.1 % (0-1); EOSINOPHIL (%) 4.9 % (0-5); EOSINOPHIL COUNT 0.4 K/uL (0-0.3); HEMATOCRIT 26.7 % (36.0-46.0); IMMATURE GRANULOCYTE (%) 0.6 % (0.0-0.7); LYMPHOCYTE (%) 11.8 % (15-42); MCH 33.7 PG (29.0-34.0); MCHC 33.7 G/DL (30.0-36.0); MONOCYTE (%) 7.2 % (3-12); MONOCYTE COUNT 0.6 K/uL (0-0.8); NEUTROPHIL (%) 75.4 % (45-76); NEUTROPHIL COUNT 6.2 K/uL (1.8-6.4); PLATELET COUNT 477 K/uL (156-360); RBC DIS.WIDTH-CV 16.1 % (11.8-14.6); RBC DIS.WIDTH-SD 59.1 % (39-53); RED BLOOD COUNT 2.67 M/uL (3.80-5.20); WHITE BLOOD COUNT 8.2 K/uL (4.1-10.2)
[2017-08-22 09:43] LABS: CHLORIDE 96 MEQ/L (99-109); CREATININE 0.5 MG/DL (0.6-1.3); GFR ESTIMATE (CALCULATED) > 59 mL/min/; POTASSIUM 4.6 MEQ/L (3.7-5.4); SODIUM 137 MEQ/L (136-147); UREA NITROGEN (BUN) 15 mg/dL (9-23)
[2017-08-22 09:45] LABS: GLUCOSE 90 mg/dL (70-99); MAGNESIUM 1.8 mg/dl (1.3-2.7)
[2017-08-22 11:54] VITALS: BP 146/66
[2017-08-22 15:49] VITALS: BP 116/57
[2017-08-22 19:59] VITALS: BP 137/72
[2017-08-22 23:20] VITALS: BP 110/55
[2017-08-23 03:26] VITALS: BP 118/57
[2017-08-23 07:29] VITALS: BP 123/73
[2017-08-23 16:10] VITALS: BP 139/67
[2017-08-24 00:19] VITALS: BP 111/59
[2017-08-24 07:11] VITALS: BP 123/60
[2017-08-24] MEDS ORDERED: TAMSULOSIN HCL0.4 MG PO (12:12)
[2017-08-24] MEDS ORDERED: MIRTAZAPINE7.5 MG PO (12:12)
[2017-08-24] MEDS ORDERED: STIOLTO RESPIMAT4 GM IH (12:12)
[2017-08-24] MEDS ORDERED: NICOTINE PATCH1 EAC2 TD (12:12)
[2017-08-24] MEDS ORDERED: PREDNISONE10 MG PO (12:13)
[2017-08-24] MEDS ORDERED: LIBRIUM5 MG PO (12:14)
[2017-08-24] MEDS ORDERED: Thiamine,Vitamin B1 PO (12:14)
[2017-08-24] MEDS ORDERED: FOLBEE PLUS TABL5 MG PO (12:14)
[2017-08-24 13:31] LABS: BASOPHIL (%) 0.1 % (0-1); EOSINOPHIL (%) 1.4 % (0-5); EOSINOPHIL COUNT 0.1 K/uL (0-0.3); HEMATOCRIT 27.8 % (36.0-46.0); HEMOGLOBIN 9.6 G/DL (11.9-15.5); IMMATURE GRANULOCYTE (%) 0.8 % (0.0-0.7); LYMPHOCYTE (%) 3.9 % (15-42); LYMPHOCYTE COUNT 0.4 K/uL (1.0-2.8); MCHC 34.5 G/DL (30.0-36.0); MCV 101.5 FL (83-99); MONOCYTE (%) 4.3 % (3-12); MONOCYTE COUNT 0.4 K/uL (0-0.8); NEUTROPHIL (%) 89.5 % (45-76); NEUTROPHIL COUNT 8.2 K/uL (1.8-6.4); PLATELET COUNT 476 K/uL (156-360); RBC DIS.WIDTH-CV 15.9 % (11.8-14.6); RBC DIS.WIDTH-SD 58.7 % (39-53); RED BLOOD COUNT 2.74 M/uL (3.80-5.20); WHITE BLOOD COUNT 9.1 K/uL (4.1-10.2)
[2017-08-24 13:55] LABS: CHLORIDE 98 MEQ/L (99-109); CREATININE 0.5 MG/DL (0.6-1.3); GFR ESTIMATE (CALCULATED) > 59 mL/min/; GLUCOSE 121 mg/dL (70-99); SODIUM 136 MEQ/L (136-147); UREA NITROGEN (BUN) 15 mg/dL (9-23)
[2017-08-24 15:48] VITALS: BP 121/61
== END 2017-08-24 18:09 | DRG 853 ==
LOC: EME 17:10 → 4EAST 20:33 → 4WEST 20:33 → EDOF 20:33 → ENRESERV 20:34 → 4EAST 22:39 → ENRESERV 08-01 05:40 → 4EAST 08-01 05:45 → 4WEST 08-01 06:04 → ENRESERV 08-21 13:57 → 5SOUTH 08-21 16:05 → ENPENDDIS 08-24 15:31 → 5SOUTH 08-24 18:09
PROVIDERS: Emergency Medicine; Hospitalist; Internal Medicine; Internal Medicine Critical Care Medicine; Internal Medicine Nephrology; Internal Medicine Pulmonary Disease; Physician Assistant; Specialist; Surgery
PROC: 0W9B3ZZ Drainage of Left Pleural Cavity, Percutaneous Approach (ICD-10-PCS; principal; 2017-07-31)
PROC: 02HV33Z Insertion of Infusion Device into Superior Vena Cava, Percutaneous Approach (ICD-10-PCS; 2017-08-02)
PROC: 0B9G8ZX Drainage of Left Upper Lung Lobe, Via Natural or Artificial Opening Endoscopic, Diagnostic (ICD-10-PCS; 2017-08-02)
PROC: 0BH18EZ Insertion of Endotracheal Airway into Trachea, Via Natural or Artificial Opening Endoscopic (ICD-10-PCS; 2017-08-02)
PROC: 5A1955Z Respiratory Ventilation, Greater than 96 Consecutive Hours (ICD-10-PCS; 2017-08-02)
DX: A41.9 Sepsis, unspecified organism (principal); J18.9 Pneumonia, unspecified organism; J86.9 Pyothorax without fistula; J96.01 Acute respiratory failure with hypoxia; R65.21 Severe sepsis with septic shock; E43 Unspecified severe protein-calorie malnutrition; J85.0 Gangrene and necrosis of lung; J44.1 Chronic obstructive pulmonary disease with (acute) exacerbation; J91.8 Pleural effusion in other conditions classified elsewhere; J44.0 Chronic obstructive pulmonary disease with (acute) lower respiratory infection; N17.9 Acute kidney failure, unspecified; J81.1 Chronic pulmonary edema; E87.1 Hypo-osmolality and hyponatremia; E87.2 Acidosis; E87.0 Hyperosmolality and hypernatremia; R18.8 Other ascites; Z68.1 Body mass index [BMI] 19.9 or less, adult; R62.7 Adult failure to thrive; F17.210 Nicotine dependence, cigarettes, uncomplicated; F10.20 Alcohol dependence, uncomplicated; I10 Essential (primary) hypertension; E86.0 Dehydration; R04.0 Epistaxis; F32.9 Major depressive disorder, single episode, unspecified; E87.8 Other disorders of electrolyte and fluid balance, not elsewhere classified; R94.31 Abnormal electrocardiogram [ECG] [EKG]; F11.10 Opioid abuse, uncomplicated; R40.2433 Glasgow coma scale score 3-8, at hospital admission; E83.51 Hypocalcemia; K70.9 Alcoholic liver disease, unspecified; Z79.899 Other long term (current) drug therapy; E87.6 Hypokalemia; D64.9 Anemia, unspecified; E86.1 Hypovolemia
CPT/HCPCS: 36600; 70450; 71045; 71046; 71048; 71250; 71275; 74018; 74177; 74230; 76604; 76942; 80048; 80048 91; 80053; 80069; 80202; 81003; 82040; 82140; 82306; 82533 91; 82550; 82607; 82728; 82746; 82803; 82945; 82947; 82948; 83540; 83605; 83615; 83615 91; 83690; 83735; 83880; 83930; 83935; 83986 90; 84100; 84145 90; 84155; 84157; 84300; 84439; 84443; 84466; 84478; 84484; 84550; 85025; 85027; 85379; 85610; 85730; 86141; 86713 90; 86850; 86900; 86901; 87040; 87070; 87075; 87106; 87116; 87205; 87206; 87449; 87493; 87502; 87641; 88108; 89051; 92610 GN; 92611 GN; 93005; 93306; 93970; 94002; 94003; 94640; 94640 76; 94660; 94667; 94668; 94669; 94760; 94799; 97530 GO; 97530 GP; 99202; 99281; 99285; A6214; C1751; C1753; G0480; J0171; J0456; J0696; J1644; J1815; J1940; J2060; J2543; J2704; J2920; J2930; J3010; J3370; J3411; J3475; J3480; J7030; J7040; J7042; J7050; J7120; J7512; P9047; S0028

== ENCOUNTER 2017-09-13 14:37 | Inpatient (IN) | payer OTHER ==
[~2017-09-13] VITALS: Ht 157.5 cm; Wt 41.7 kg
[~2017-09-13 14:37] MED LIST changes: +FOLBEE PLUS TABL5 MG PO; +LIBRIUM5 MG PO; +MIRTAZAPINE7.5 MG PO; +NICOTINE PATCH1 EAC2 TD; +PREDNISONE10 MG PO; +STIOLTO RESPIMAT4 GM IH; +TAMSULOSIN HCL0.4 MG PO; +TYLENOL EXTRA500 MG PO; +Thiamine,Vitamin B1 PO
[2017-09-13 15:24] LABS: BASOPHIL (%) 0.3 % (0-1); BASOPHIL COUNT 0.1 K/uL (0-0.1); EOSINOPHIL (%) 0 % (0-5); HEMOGLOBIN 8.9 G/DL (11.9-15.5); IMMATURE GRANULOCYTE (%) 1.4 % (0.0-0.7); LYMPHOCYTE (%) 4.8 % (15-42); LYMPHOCYTE COUNT 1.4 K/uL (1.0-2.8); MCH 32.7 PG (29.0-34.0); MCHC 34.2 G/DL (30.0-36.0); MCV 95.6 FL (83-99); MONOCYTE (%) 16.8 % (3-12); MONOCYTE COUNT 4.8 K/uL (0-0.8); NEUTROPHIL (%) 76.7 % (45-76); PLATELET COUNT 895 K/uL (156-360); RBC DIS.WIDTH-CV 14.3 % (11.8-14.6); RBC DIS.WIDTH-SD 49.8 % (39-53); RED BLOOD COUNT 2.72 M/uL (3.80-5.20); WHITE BLOOD COUNT 28.7 K/uL (4.1-10.2)
[2017-09-13 15:37] LABS: ALBUMIN 3.9 g/dL (3.2-4.8)
[2017-09-13 15:38] LABS: CHLORIDE 96 mEq/L (99-109); POTASSIUM 3.4 mEq/L (3.7-5.4); SODIUM 131 mEq/L (136-147)
[2017-09-13 15:40] LABS: GLUCOSE 111 mg/dL (70-99); TOTAL PROTEIN 7.1 g/dL (6.4-8.3)
[2017-09-13 15:42] LABS: TOTAL BILIRUBIN 0.5 mg/dL (0.0-1.0)
[2017-09-13 15:43] LABS: ALKALINE PHOSPHATASE 87 IU/L (3-129)
[2017-09-13 15:44] LABS: CREATININE 0.7 mg/dL (0.6-1.3); GFR ESTIMATE (CALCULATED) > 59 mL/min/
[2017-09-13 15:45] LABS: AST (GOT) 23 IU/L (2-34); UREA NITROGEN (BUN) 8 mg/dL (9-23)
[2017-09-13 15:47] LABS: ALT (GPT) 26 IU/L (3-49); LIPASE 27 U/L (1.0-51.0)
[2017-09-13 18:30] LABS: APPEARANCE CLEAR ((CLEAR)); BILIRUBIN NEGATIVE; BLOOD SMALL; COLOR YELLOW ((YELLOW)); GLUCOSE (STRIP) NEGATIVE; KETONES NEGATIVE; LEUKOCYTES TRACE; NITRITE NEGATIVE; PROTEIN (STRIP) NEGATIVE; SPECIFIC GRAVITY 1.017 (1.000-1.030); UROBILINOGEN 0.2 MG/DL (0.2-1.0)
[2017-09-13 18:42] LABS: BACTERIA NONE SEEN /HPF; EPITHELIAL CELLS 1+ /HPF; MUCUS TRACE /LPF; RED BLOOD CELLS 0-5 /HPF (0-5)
[2017-09-13 21:08] LABS: HEMATOCRIT 23.1 % (36.0-46.0); HEMOGLOBIN 8.1 G/DL (11.9-15.5); MCH 33.6 PG (29.0-34.0); MCHC 35.1 G/DL (30.0-36.0); MCV 95.9 FL (83-99); PLATELET COUNT 691 K/uL (156-360); RBC DIS.WIDTH-CV 14.4 % (11.8-14.6); RBC DIS.WIDTH-SD 50.4 % (39-53); RED BLOOD COUNT 2.41 M/uL (3.80-5.20); WHITE BLOOD COUNT 21.1 K/uL (4.1-10.2)
[2017-09-13 21:44] VITALS: BP 109/53
[2017-09-14] VITALS (7 sets, daily range): BP systolic 110–124; BP diastolic 53–86
[2017-09-14 11:00] LABS: C DIFF TOXIN POSITIVE (NEGATIVE)
[2017-09-14 11:26] LABS: APPEARANCE CLEAR ((CLEAR)); BILIRUBIN NEGATIVE; BLOOD SMALL; COLOR YELLOW ((YELLOW)); GLUCOSE (STRIP) NEGATIVE; KETONES NEGATIVE; LEUKOCYTES TRACE; NITRITE NEGATIVE; PROTEIN (STRIP) NEGATIVE; SPECIFIC GRAVITY 1.014 (1.000-1.030); UROBILINOGEN 0.2 MG/DL (0.2-1.0)
[2017-09-14 11:27] LABS: STOOL OCCULT BLD 1ST SPECIMEN POSITIVE
[2017-09-14 11:28] LABS: BACTERIA NONE SEEN /HPF; EPITHELIAL CELLS RARE /HPF; MUCUS NONE SEEN /LPF; RED BLOOD CELLS 0-5 /HPF (0-5); UCUL ADDED? NO; WHITE BLOOD CELLS 0-5 /HPF (0-5)
[2017-09-14] MEDS ORDERED: VITAMIN B-150 MG PO (13:06)
[2017-09-14] MEDS ORDERED: FOLIC ACID1 MG PO (13:07)
[2017-09-14] MEDS ORDERED: ANORO ELLIPTA1 EACH IH (13:08)
[2017-09-14] MEDS ORDERED: VENTOLIN HFA18 GM IH (13:08)
[2017-09-15 03:40] VITALS: BP 114/84
[2017-09-15 06:07] LABS: BASOPHIL (%) 0.7 % (0-1); BASOPHIL COUNT 0.1 K/uL (0-0.1); EOSINOPHIL (%) 2.1 % (0-5); EOSINOPHIL COUNT 0.3 K/uL (0-0.3); HEMATOCRIT 23.4 % (36.0-46.0); HEMOGLOBIN 7.7 G/DL (11.9-15.5); IMMATURE GRANULOCYTE (%) 3.6 % (0.0-0.7); LYMPHOCYTE (%) 16.9 % (15-42); LYMPHOCYTE COUNT 2.1 K/uL (1.0-2.8); MCH 31.8 PG (29.0-34.0); MCHC 32.9 G/DL (30.0-36.0); MCV 96.7 FL (83-99); MONOCYTE (%) 20.8 % (3-12); MONOCYTE COUNT 2.6 K/uL (0-0.8); NEUTROPHIL (%) 55.9 % (45-76); NEUTROPHIL COUNT 6.9 K/uL (1.8-6.4); PLATELET COUNT 723 K/uL (156-360); RBC DIS.WIDTH-SD 49.8 % (39-53); RED BLOOD COUNT 2.42 M/uL (3.80-5.20); WHITE BLOOD COUNT 12.4 K/uL (4.1-10.2)
[2017-09-15 06:52] LABS: CHLORIDE 104 MEQ/L (99-109); CREATININE 0.4 MG/DL (0.6-1.3); GFR ESTIMATE (CALCULATED) > 59 mL/min/; GLUCOSE 90 mg/dL (70-99); POTASSIUM 3.2 MEQ/L (3.7-5.4); SODIUM 135 MEQ/L (136-147); UREA NITROGEN (BUN) 2 mg/dL (9-23)
[2017-09-15 08:05] VITALS: BP 118/68
[2017-09-15 16:12] VITALS: BP 120/72
[2017-09-15 20:21] VITALS: BP 120/72
[2017-09-15 22:52] VITALS: BP 110/54
[2017-09-16 05:11] VITALS: BP 103/55
[2017-09-16 06:05] LABS: HEMATOCRIT 26.9 % (36.0-46.0); HEMOGLOBIN 8.9 G/DL (11.9-15.5); MCH 32.1 PG (29.0-34.0); MCHC 33.1 G/DL (30.0-36.0); MCV 97.1 FL (83-99); PLATELET COUNT 810 K/uL (156-360); RBC DIS.WIDTH-CV 13.8 % (11.8-14.6); RBC DIS.WIDTH-SD 49.3 % (39-53); RED BLOOD COUNT 2.77 M/uL (3.80-5.20); WHITE BLOOD COUNT 12.8 K/uL (4.1-10.2)
[2017-09-16 06:24] LABS: CHLORIDE 101 MEQ/L (99-109); CREATININE 0.4 MG/DL (0.6-1.3); GFR ESTIMATE (CALCULATED) > 59 mL/min/; GLUCOSE 101 mg/dL (70-99); POTASSIUM 4.2 MEQ/L (3.7-5.4); SODIUM 133 MEQ/L (136-147); UREA NITROGEN (BUN) 2 mg/dL (9-23)
[2017-09-16 06:35] LABS: ABS NEUTROPHIL COUNT 6.8; ANISOCYTOSIS NONE SEEN; ATYPICAL LYMPHOCYTE 5.2 %; BAND NEUTROPHILS 0.9 % (0-8.0); BASOPHILS 0.9 %; EOSINOPHIL ABS CT 0.7; EOSINOPHILS 5.2 % (0-5.0); LYMPHOCYTES 15.6 % (15.0-45.0); MONOCYTES 17.4 % (0-9.0); MYELOCYTES 2.6 %; PLAT.SUFFICIENCY INCREASED; SEG.NEUTROPHILS 52.2 % (46.0-76.0)
[2017-09-16 07:04] VITALS: BP 101/58
[2017-09-16 08:47] LABS: HEMATOCRIT 27.1 % (36.0-46.0); HEMOGLOBIN 8.9 G/DL (11.9-15.5); MCH 32.2 PG (29.0-34.0); MCHC 32.8 G/DL (30.0-36.0); MCV 98.2 FL (83-99); PLATELET COUNT 843 K/uL (156-360); RED BLOOD COUNT 2.76 M/uL (3.80-5.20); WHITE BLOOD COUNT 12.7 K/uL (4.1-10.2)
[2017-09-16 09:18] LABS: ABS NEUTROPHIL COUNT 7.5; ANISOCYTOSIS NONE SEEN; ATYPICAL LYMPHOCYTE 2.6 %; BAND NEUTROPHILS 4.3 % (0-8.0); BURR CELLS 1+; EOSINOPHIL ABS CT 0.7; EOSINOPHILS 5.2 % (0-5.0); LYMPHOCYTES 17.4 % (15.0-45.0); METAMYELOCYTES 0.9 %; MONOCYTES 14.8 % (0-9.0); PLAT.SUFFICIENCY INCREASED; POIKILOCYTOSIS 2+; SEG.NEUTROPHILS 54.8 % (46.0-76.0); SMUDGE CELLS 1.7; TARGET CELLS 1+
[2017-09-16 11:18] VITALS: BP 122/58
[2017-09-16] MEDS ORDERED: BENTYL20 MG PO (12:57)
[2017-09-16] MEDS ORDERED: FAMOTIDINE20 MG PO (12:57)
[2017-09-16] MEDS ORDERED: VANCOMYCIN HCL125 MG PO (12:58)
[2017-09-16 15:16] VITALS: BP 98/58
[2017-09-16 19:32] VITALS: BP 110/61
[2017-09-16 23:18] VITALS: BP 109/60
[2017-09-17 03:39] VITALS: BP 106/54
[2017-09-17 05:57] LABS: BASOPHIL (%) 0.7 % (0-1); BASOPHIL COUNT 0.1 K/uL (0-0.1); EOSINOPHIL COUNT 0.2 K/uL (0-0.3); HEMATOCRIT 25.6 % (36.0-46.0); HEMOGLOBIN 8.6 G/DL (11.9-15.5); IMMATURE GRANULOCYTE (%) 2.5 % (0.0-0.7); LYMPHOCYTE (%) 14.4 % (15-42); LYMPHOCYTE COUNT 1.6 K/uL (1.0-2.8); MCH 32.1 PG (29.0-34.0); MCHC 33.6 G/DL (30.0-36.0); MCV 95.5 FL (83-99); MONOCYTE (%) 15.2 % (3-12); MONOCYTE COUNT 1.7 K/uL (0-0.8); NEUTROPHIL (%) 65.2 % (45-76); NEUTROPHIL COUNT 7.4 K/uL (1.8-6.4); PLATELET COUNT 813 K/uL (156-360); RBC DIS.WIDTH-CV 13.9 % (11.8-14.6); RBC DIS.WIDTH-SD 48.5 % (39-53); RED BLOOD COUNT 2.68 M/uL (3.80-5.20); WHITE BLOOD COUNT 11.4 K/uL (4.1-10.2)
[2017-09-17 06:19] LABS: CHLORIDE 104 MEQ/L (99-109); CREATININE 0.5 MG/DL (0.6-1.3); GFR ESTIMATE (CALCULATED) > 59 mL/min/; GLUCOSE 91 mg/dL (70-99); POTASSIUM 4.2 MEQ/L (3.7-5.4); SODIUM 137 MEQ/L (136-147); UREA NITROGEN (BUN) 2 mg/dL (9-23)
[2017-09-17 06:59] VITALS: BP 113/63
== END 2017-09-17 12:29 | disposition home or self-care (01) | DRG 385 ==
LOC: EME 14:37 → EDOF 19:52 → 5SOUTH 19:52 → ENRESERV 20:02 → 5SOUTH 21:27
PROVIDERS: Emergency Medicine; Hospitalist; Internal Medicine
DX: K51.00 Ulcerative (chronic) pancolitis without complications (principal); J18.9 Pneumonia, unspecified organism; I10 Essential (primary) hypertension; E86.0 Dehydration; E87.6 Hypokalemia; R65.10 Systemic inflammatory response syndrome (SIRS) of non-infectious origin without acute organ dysfunction; J44.0 Chronic obstructive pulmonary disease with (acute) lower respiratory infection; D50.9 Iron deficiency anemia, unspecified; Z99.2 Dependence on renal dialysis; Z87.891 Personal history of nicotine dependence; Z68.1 Body mass index [BMI] 19.9 or less, adult; J98.11 Atelectasis
CPT/HCPCS: 71045; 74177; 80048; 80053; 81003; 82272; 83690; 85007; 85025; 85025 91; 85027; 85060; 87177; 87329; 87493; 87506; 93005; 94640; 99281; 99285; J1650; J1885; J1956; J2405; J7030; S0030